=== PATIENT | male | born 1985 | race Caucasian/White ===

== ENCOUNTER 2024-02-17 00:36 | Emergency (ER) | payer BC ==
[2024-02-17 00:41] VITALS: BP 134/93; PULSE 70; RESP 18; TEMP 98.7; BMI 34.6
[2024-02-17] MEDS ORDERED: ACETAMINOPHEN 325 MG TABLET (FP) ONE (01:33)
[2024-02-17] MEDS ORDERED: FAMOTIDINE 20 MG TABLET ONE (01:33)
[2024-02-17] MEDS ORDERED: MAG HYDROX/AL HYDROX/SIMETH 30 ML UNIT-DOSE CUP ONE (01:34)
[2024-02-17] MEDS: MAG HYDROX/AL HYDROX/SIMETH 30 ML UNIT-DOSE CUP PO ONE (01:51)
[2024-02-17] MEDS: FAMOTIDINE 20 MG TABLET PO ONE (01:52)
[2024-02-17] MEDS: ACETAMINOPHEN 500 MG TABLET (FP) PO ONE (01:52)
[2024-02-17 02:02] LABS: BASO % 0.7 % (0-2.0); EOS % 1.4 % (0-4.5); HEMATOCRIT 39.4 % (35.4-49); HEMOGLOBIN 13.3 GM/dL (11.7-16.9); LYMPH % 15.8 % (8-40); MCH 28.6 pg (25.7-33.7); MCHC 33.7 g/dl (32.0-35.9); MEAN PLT VOLUME 7.8 fl (7.5-11.1); NEUT % 77.1 % (42.8-82.8); PLATELET COUNT 234 10^3/uL (134-434); RBC 4.64 M/mm3 (4.00-5.60); RDW 14.3 % (11.9-15.9); WHITE BLOOD COUNT 8.4 K/mm3 (4.0-10.0)
[2024-02-17 02:28] LABS: POTASSIUM 3.8 mmol/L (3.5-5.1)
[2024-02-17 02:30] LABS: ALBUMIN 3.9 g/dl (3.4-5.0); CALCIUM 9.1 mg/dL (8.5-10.1)
[2024-02-17 02:31] LABS: BLOOD UREA NITROGEN 16.5 mg/dL (7-18)
[2024-02-17 02:34] LABS: CREATININE 0.9 mg/dL (0.55-1.3)
[2024-02-17] MEDS ORDERED: ACETAMINOPHEN INJECTION 100 ML ONE (02:34)
[2024-02-17 02:35] LABS: BILIRUBIN,TOTAL 0.8 mg/dL (0.2-1); TOT PROT 7.7 g/dl (6.4-8.2)
[2024-02-17] MEDS ORDERED: FAMOTIDINE 20 MG/50 ML IVPB 20 MG/50 ML MG IVPB ONE (02:35)
[2024-02-17] MEDS ORDERED: ONDANSETRON 4 MG/2 ML VIAL ONE (02:35)
[2024-02-17] MEDS: ACETAMINOPHEN 1000 MG/100 ML BAG IVPB ONE (02:39)
[2024-02-17] MEDS: FAMOTIDINE 20 MG/50 ML IVPB 20 MG/50 ML MG IVPB ONE (02:40)
[2024-02-17] MEDS: ONDANSETRON 4 MG/2 ML VIAL IVPB ONE (02:40)
[2024-02-17 03:24] LABS: HIV INTERPRETATION NEGATIVE (NEGATIVE)
== END 2024-02-17 05:37 | disposition home or self-care (01) ==
LOC: JER 00:36
PROC: 3E033GC Introduction of Other Therapeutic Substance into Peripheral Vein, Percutaneous Approach (ICD-10-PCS; principal; 2024-02-17)
PROC: 3E033NZ Introduction of Analgesics, Hypnotics, Sedatives into Peripheral Vein, Percutaneous Approach (ICD-10-PCS; 2024-02-17)
PROC: 3E033GC Introduction of Other Therapeutic Substance into Peripheral Vein, Percutaneous Approach (ICD-10-PCS; 2024-02-17)
DX: R10.13 Epigastric pain (principal)
CPT/HCPCS: 36415; 71046-TC-FY; 80053; 83690; 84484; 85025; 86803; 87389; 93005; 93010; 99285-25; J0131